=== PATIENT | male | born 1985 | race Two or more races ===

== ENCOUNTER 2018-04-27 19:37 | Emergency (ER) | payer MEDICAID ==
[~2018-04-27] VITALS: Ht 182.9 cm; Wt 147.8 kg
[2018-04-27 19:40] VITALS: BP 128/92
[2018-04-27] MEDS ORDERED: BACITRACIN ZINC OINT 500U/GM, 0.9 GM ONE (20:29)
[2018-04-27] MEDS ORDERED: DEXAMETHASONE 4 MG TABLET ONE (20:54)
[2018-04-27] MEDS ORDERED: DEXAMETHASONE 4 MG TABLET PO ONE (21:00)
== END 2018-04-27 21:34 | disposition home or self-care (01) ==
LOC: ED 21:00
DX: H65.03 Acute serous otitis media, bilateral (principal); J00 Acute nasopharyngitis [common cold]
CPT/HCPCS: 71046; 99284

== ENCOUNTER 2021-02-26 23:41 | Emergency (ER) | payer MEDICAID ==
[~2021-02-26] VITALS: Ht 182.9 cm; Wt 143.0 kg
[~2021-02-26 23:41] MED LIST: CEFD300C37 PO; GUAI600T31 PO
[2021-02-27 00:30] VITALS: BP 148/99
--- NOTE | 2021-02-27 00:31 | NUR ---
TASK RN: Patient/Caregiver given discharge instructions and they have confirmed that they understand the instructions. Patient ambulatory with steady gait. NAD, all questions answered appropriately, denies additional needs at this time. No personal belongings left in room after discharge.
== END 2021-02-27 00:32 | disposition home or self-care (01) ==
LOC: ED 02-27 00:11
DX: K02.9 Dental caries, unspecified (principal); R10.11 Right upper quadrant pain
CPT/HCPCS: 99283